=== PATIENT | male | born 1955 | race Caucasian/White ===

== ENCOUNTER 2019-01-01 11:18 | Outpatient (CLI) | payer OTHER ==
[2019-01-01 12:32] LABS: eGFR (Non-African) > 60
--- NOTE | 2019-01-03 15:01 | Diagnostic Imaging Report ---
MIO BRAVO [facility] [address] [facility] [address] [place] [address]. [id number] Report Submission Date: Jan 01, 2019 1:19:48 PM CDT Patient Study Name: TADEO HUTSON Date: Jan 01, 2019 12:45:08 PM CDT Modality Type: CT\SR Gender: M Description: CT ABD PELVIS W/ CON : 53 Institution: [facility] Physician: MIO BRAVO Exam: CT abdomen and pelvis with contrast. History: Intra-abdominal mass. Axial images through the abdomen and pelvis after IV infusion of 90 cc omni scan 350 is submitted along with sagittal and coronal reformatted images. The visualized lower lung boudreaux are clear. No free intraperitoneal air is identified. Surgical clips in the gallbladder fossa are noted. Numerous cysts are associated with the liver. There is a complex fluid collection containing some air noted adjacent to the left lobe of the liver which could represent an abscess formation measuring 5.5 x 4.2 x 3.4 cm. The spleen and pancreas are normal attenuation and enhancement. The adrenal glands are normal configuration. The abdominal aorta is of normal caliber. No periaortic lymphadenopathy is detected. Both kidneys are normal attenuation and enhancement. No hydronephrosis or hydroureter is identified. The urinary bladder is partially distended without intrinsic filling defect. The appendix is not well visualized. The small bowel is of normal caliber. Air and stool seen throughout the large intestine. Diverticula in the sigmoid colon is noted. Previous fusion of L3-4, L4-5 and L5-S1 levels are noted. No other bony abnormalities are identified. Impression: Previous cholecystectomy. Numerous a Paddock cysts are identified. Complex fluid collection containing some air noted adjacent to the left lobe of the liver which could represent abscess formation as measured above. No hydronephrosis. The appendix is not well visualized. Nonspecific bowel gas pattern. Sigmoid diverticulosis. No inflammatory changes in the mesentery or ascites is identified. Electronically signed on Jan 01, 2019 1:19:48 PM CDT by: Jai BURLESON
== END 2019-01-01 11:20 ==
LOC: RAD 11:18
PROVIDERS: ATTEND Internal Medicine Gastroenterology
DX: R10.84 Generalized abdominal pain (principal)
CPT/HCPCS: 74177; 80053; Q9967

== ENCOUNTER 2019-01-31 12:52 | Outpatient (CLI) | payer MEDICARE, OTHER ==
--- NOTE | 2019-01-31 14:15 | Diagnostic Imaging Report ---
PATIENT MR#: [id number] PATIENT PATIENT NAME: TADEO HUTSON DATE OF : 1955 REFERRING PHYSICIAN: PROVIDER TEST EXAM DATE: 01/31/2019 ACCESSION NUMBER: [id number] EXAM DESCRIPTION: CT CHEST W/ CONTRAST Exam: CT chest with contrast. History: Abnormal CT of the abdomen. Axial images through the thorax are submitted along with sagittal and coronal reformatted images. Ar e submitted. Lung boudreaux are well aerated without juan f consolidation or effusion. The thoracic aorta and mainste m pulmonary artery are normal. No significant mediastinal or axillary adenopathy is noted. Postoperative changes in th e epigastrium with numerous hepatic cysts are identified. Impression: No juan f consolidation or effusion. Read by: Dr. Jai Noriega Transcribed by: Transcribed Date: Electronically signed by: Dr. Jai Noriega Date signed: 01/31/2019 2:14:33 PM
--- NOTE | 2019-01-31 16:22 | Diagnostic Imaging Report ---
PATIENT MR#: [id number] PATIENT PATIENT NAME: TADEO HUTSON DATE OF : 1955 REFERRING PHYSICIAN: PROVIDER TEST EXAM DATE: 01/31/2019 ACCESSION NUMBER: [id number] EXAM DESCRIPTION: DEXA Examination: Bone density History: Assess bone mineralization Comparison exams: None available Technique: DEXA protocol Findings: Average bone mineral density right radius: 0.993 grams cm2. T score: -0.1 Average bone mineral density left radius: 0.957 grams cm2. T score: -0.5 Average bone mineral density of the left femoral neck: 1.105 grams cm2. T score: -0.9 Average bone mineral density of the right femoral neck: 1.036 grams cm2. T score: -1.0 Impression: Normal femoral and radial mineralization for age Read by: Dr. Jaxon Rubin Transcribed by: Transcribed Date: Electronically signed by: Dr. Jaxon Rubin Date signed: 01/31/2019 4:21:33 PM
== END 2019-01-31 13:02 | disposition home or self-care (01) ==
LOC: RAD 12:52
PROVIDERS: ATTEND Internal Medicine
DX: E55.9 Vitamin D deficiency, unspecified (principal); R91.8 Other nonspecific abnormal finding of lung field
CPT/HCPCS: 71260; 77080; Q9967

== ENCOUNTER 2019-02-08 14:01 | Outpatient (CLI) | payer OTHER ==
[2019-02-08 14:36] LABS: BASOPHILS % 0.7 % (0.0-1.5); NEUTROPHILS # 12.5 # k/uL (1.4-7.7)
[2019-02-08 15:02] LABS: eGFR (Non-African) > 60
--- NOTE | 2019-02-08 17:31 | Diagnostic Imaging Report ---
PATIENT MR#: [id number] PATIENT PATIENT NAME: TADEO HUTSON DATE OF : 1955 REFERRING PHYSICIAN: Fredy Morfin EXAM DATE: 02/08/2019 ACCESSION NUMBER: [id number] EXAM DESCRIPTION: CT ABD PELVIS W/ CON CLINICAL HISTORY: FOLLOW UP ABDOMINAL ABSCESS. TECHNIQUE: CT abdomen and pelvis following administration of IV contrast. 90 mL Omnipaque 350 were ad ministered. COMPARISON: January 01, 2019. CT ABDOMEN WITH CONTRAST: Lung bases: No lung base infiltrate or effusion. Liver: Multiple hepatic cysts appear stable, largest 3 cm in the left lobe. No intrahepatic ductal di lation. There has been interval placement of an internal gastric-abscess pigtail drainage catheter within the abscess a djacent to the left hepatic lobe currently measuring 2.9 x 3.4 x 4.7 cm (previously 3.1 x 3.6 x 5 cm). Gallbladder: Cholecystectomy. Pancreas: No pancreatic duct dilation. Bowel loops: Nondistended. Spleen: Normal size. Small focus of hyperenhancement is unchanged. Adrenals: Normal size. Kidneys: No hydronephrosis. Aorta: Normal caliber. Peritoneum: No free air. Lumbar spine: Stable appearance of L3-4 and L4-5 TDR and L5-S1 ALIF. CT PELVIS WITH CONTRAST: Colon: Scattered diverticula without evidence of diverticulitis. Appendix: Normal appendix is seen. Bladder: Normally distended. Pelvic organs: Unremarkable. Peritoneum: No fluid. IMPRESSION: 1. Interval placement of internal gastric-abscess pigtail drainage catheter. Although there has been slight decrease in the size of the abscess, measurements remain 2.9 x 3.4 x 4.7 cm. 2. Hepatic cysts. 3. Diverticulosis without diverticulitis. Read by: Dr. Rikki Silverio Transcribed by: Rikki Silverio Transcribed Date: 02/08/2019 5:30:59 PM Electronically signed by: Dr. Rikki Silverio Date signed: 02/08/2019 5:30:59 PM
== END 2019-02-08 14:11 ==
LOC: RAD 14:01
PROVIDERS: ATTEND Specialist
DX: L02.211 Cutaneous abscess of abdominal wall (principal)
CPT/HCPCS: 36415; 74177; 82565; 84520; 85025; Q9967

== ENCOUNTER 2019-03-27 14:24 | Outpatient (CLI) | payer MEDICARE, OTHER ==
[2019-03-27 15:15] LABS: BASOPHILS % 0.6 % (0.0-1.5)
[2019-03-27 15:24] LABS: eGFR (Non-African) > 60
--- NOTE | 2019-03-27 16:30 | Diagnostic Imaging Report ---
PATIENT MR#: [id number] PATIENT PATIENT NAME: TADEO HUTSON DATE OF : 1955 REFERRING PHYSICIAN: Makayla Hawthorne EXAM DATE: 03/27/2019 ACCESSION NUMBER: [id number] EXAM DESCRIPTION: CT ABD W/ CONTRAST Exam: CT abdomen with contrast. History: Abscess. Axial images through the abdomen after IV infusion of 90 cc Omnipaque 350 is submitted along with sag ittal and coronal reformatted images. The examination is compared to study dated February 08, 2019. The visualized lower lung boudreaux are clear. A small hiatal hernia is identified. No free intraperit shelley air is identified. A complex epigastric mass with fluid and cystic components adjacent to the fundus of the stomach is again identified. A drainage catheter communicating with the stomach originating within this complex mass remains in position. No change in size or appearance of this structure is noted. Surgical clips in the gallbladder fossa are noted. There is redemonstration of multiple hepatic cyst s which have not changed in the interval. The spleen and pancreas are unchanged in attenuation and enhancement. The adrenal glands are normal configuration. The abdominal aorta is of normal caliber and associated with atherosclerotic p laque. No periaortic lymphadenopathy is identified. Both kidneys are normal attenuation and enhancement withou t hydronephrosis. The small bowel is of normal caliber. The visualized colon contains air and stool. No inflammatory changes in the mesentery or ascites is identified. Fusion of the lower lumbar spine is again identified. Impression: Small hiatal hernia. Complex epigastric mass associated with a catheter draining into the stomach is not changed in appea priscilla or size in the interval. Previous cholecystectomy. Redemonstration of multiple hepatic cysts. no hydronephrosis. Nonspecific bowel gas pattern. No inflammatory changes in the mesentery or ascites is identified. Read by: Dr. Jai Noriega Transcribed by: Transcribed Date: Electronically signed by: Dr. Jai Noriega Date signed: 03/27/2019 4:29:51 PM
== END 2019-03-27 15:24 ==
LOC: OUT 14:24
PROVIDERS: ATTEND Nurse Practitioner Adult Health
DX: Z01.818 Encounter for other preprocedural examination (principal); L02.211 Cutaneous abscess of abdominal wall
CPT/HCPCS: 74160; 80053; 85025; 93005; Q9967

== ENCOUNTER 2019-03-28 09:35 | Day surgery (SDC) | payer MEDICARE, OTHER ==
[~2019-03-28 09:35] MED LIST: DEXAMETHASONE SOD PHOS 4 MG/ML VIAL ONE; FAMOTIDINE 20 MG/2 ML VIAL IV ONE; KETOROLAC TROMETHAMINE 30 MG/1ML VIAL ONE; LIDOCAINE HCL 2% PF 100MG/5ML VIAL IJ ONE; MIDAZOLAM HCL 2 MG/2 ML VIAL ONE; ONDANSETRON HCL/PF 4 MG/ 2ML VIAL ONE; PROPOFOL 200 MG/20 ML VIAL IV ONE; SEVOFLURANE 250 ML LIQUID IH ONE; ePHEDrine SULFATE 50 MG/1 ML IVP ONE; fentaNYL CITRATE/PF 100 MCG/2 ML INJ. ONE
== END 2019-03-28 12:16 | disposition home or self-care (01) ==
LOC: OPSURG 09:35
PROVIDERS: ATTEND Specialist
DX: M99.05 Segmental and somatic dysfunction of pelvic region (principal); M70.62 Trochanteric bursitis, left hip; M99.06 Segmental and somatic dysfunction of lower extremity; M47.27 Other spondylosis with radiculopathy, lumbosacral region; M47.812 Spondylosis without myelopathy or radiculopathy, cervical region; M47.814 Spondylosis without myelopathy or radiculopathy, thoracic region
CPT/HCPCS: 22505; 27198; 27275; J1100; J1885; J2001; J2250; J2405; J2704; J3010

== ENCOUNTER 2019-03-29 10:05 | Day surgery (SDC) | payer MEDICARE, OTHER ==
[~2019-03-29 10:05] MED LIST changes: -DEXAMETHASONE SOD PHOS 4 MG/ML VIAL ONE; -FAMOTIDINE 20 MG/2 ML VIAL IV ONE; -KETOROLAC TROMETHAMINE 30 MG/1ML VIAL ONE; +LACTATED RINGERS 1,000 ML IV.SOLN IV ONE; -MIDAZOLAM HCL 2 MG/2 ML VIAL ONE; -SEVOFLURANE 250 ML LIQUID IH ONE; -ePHEDrine SULFATE 50 MG/1 ML IVP ONE; -fentaNYL CITRATE/PF 100 MCG/2 ML INJ. ONE
== END 2019-03-29 12:05 | disposition home or self-care (01) ==
LOC: OPSURG 10:05
PROVIDERS: ATTEND Specialist
DX: M99.05 Segmental and somatic dysfunction of pelvic region (principal); M70.62 Trochanteric bursitis, left hip; M99.06 Segmental and somatic dysfunction of lower extremity; M47.27 Other spondylosis with radiculopathy, lumbosacral region; M47.812 Spondylosis without myelopathy or radiculopathy, cervical region; M47.814 Spondylosis without myelopathy or radiculopathy, thoracic region
CPT/HCPCS: 22505; 27198; 27275; J2001; J2405; J2704; J7120

== ENCOUNTER 2019-03-30 09:08 | Day surgery (SDC) | payer MEDICARE, OTHER ==
[~2019-03-30 09:08] MED LIST changes: +DEXAMETHASONE SOD PHOS 4 MG/ML VIAL ONE; +KETOROLAC TROMETHAMINE 30 MG/1ML VIAL ONE; +MIDAZOLAM HCL 2 MG/2 ML VIAL ONE; -ONDANSETRON HCL/PF 4 MG/ 2ML VIAL ONE; +SEVOFLURANE 250 ML LIQUID IH ONE; +fentaNYL CITRATE/PF 100 MCG/2 ML INJ. ONE
[2019-03-30] MEDS ORDERED: FAMOTIDINE 20 MG/2 ML VIAL IV ONE (09:37)
== END 2019-03-30 11:15 | disposition home or self-care (01) ==
LOC: OPSURG 09:08
PROVIDERS: ATTEND Specialist
DX: M99.05 Segmental and somatic dysfunction of pelvic region (principal); M70.62 Trochanteric bursitis, left hip; M99.06 Segmental and somatic dysfunction of lower extremity; M47.27 Other spondylosis with radiculopathy, lumbosacral region; M47.812 Spondylosis without myelopathy or radiculopathy, cervical region; M47.814 Spondylosis without myelopathy or radiculopathy, thoracic region
CPT/HCPCS: 22505; 27198; 27275; J1100; J1885; J2001; J2250; J2704; J3010; J7120